=== PATIENT | female | born 1960 | race Two or more races ===

== ENCOUNTER 2017-03-16 14:40 | Emergency (ER) | payer SELFPAY ==
[~2017-03-16] VITALS: Ht 170.2 cm; Wt 86.2 kg
[2017-03-16 14:54] VITALS: BP 145/94
--- NOTE | 2017-03-16 15:32 | Emergency Room Report ---
History of Present Illness General Chief Complaint: Medical Clearance Source: Patient Present Illness HPI 56-year-old female presents emergency department for a medical clearance for incarceration. Patient reports history of chronic back pain with herniated disc in addition to diabetes type 2. Patient reports low back pain that is 5/ 10 in severity localized nonradiating consistent with her chronic back pain symptoms.Patient states she is prescribed tramadol, and gabapentin for her pain. Patient also is requesting that her glucose be checked prior to discharge. Pt. states she also has hx of fibromyalgia, and thyroid dysfunction. Denies abdominal pain, rashes, fevers, chills, nausea, or vomiting. Denies polydipsia/polyuria. Denies numbness tingling or loss of sensation or gross motor movements of the extremities, incontinence of bowel or bladder. Denies CP , Palpitations, LOC, AMS, dizziness, Changes in Vision, Sensation, paresthesias , or a sudden severe headache. Allergies: Coded Allergies: No Known Allergies (Unverified , 03/16/17) Patient History Past Medical History: see triage record Past Surgical History: none Pertinent Family History: none Immunizations: UTD Reviewed Nursing Documentation: PMH: Agreed, PSxH: Agreed Nursing Documentation-PMH Past Medical History: No History, Except For Hx Hypertension: Yes - Thyroid problem Hx Diabetes: Yes Hx Dialysis: Yes History Of Psychiatric Problem: Yes - Anxiety Hx Neurological Problems: Yes - Herinated disc Review of Systems All Other Systems: negative except mentioned in HPI Physical Exam Vital Signs Date Time Temp Pulse Resp B/P Pulse Ox O2 Delivery O2 Flow Rate FiO2 03/16/17 14:54 98.4 101 18 145/94 96 Room Air Sp02 EP Interpretation: reviewed, abnormal - tachycardic at 101bpm General Appearance: no apparent distress, alert, GCS 15, non-toxic Head: normocephalic, atraumatic Eyes: bilateral eye PERRL, bilateral eye normal inspection ENT: hearing grossly normal, normal pharynx, no angioedema, normal voice Neck: full range of motion, supple/symm/no masses Respiratory: chest non-tender, lungs clear, normal breath sounds, speaking full sentences Cardiovascular #1: regular rate, rhythm, no edema Gastrointestinal: normal bowel sounds, non tender, soft, no guarding, no rebound Rectal: deferred Genitourinary: normal inspection, no CVA tenderness Musculoskeletal: back normal, gait/station normal, normal range of motion, tender - paraspinal bilateral TTP, no midline ttp, no obivous deformities. Neurologic: alert, oriented x3, responsive, motor strength/tone normal, sensory intact, speech normal Psychiatric: judgement/insight normal, memory normal, mood/affect normal Skin: normal color, no rash, warm/dry, well hydrated Lymphatic: no adenopathy Medical Decision Making PA Attestation Dr. Sheridan is my supervising Physician whom patient management has been discussed with. Diagnostic Impression: Primary Impression: Medical clearance for incarceration ER Course 56-year-old female presents emergency department for a medical clearance for incarceration. Patient reports history of chronic back pain with herniated disc in addition to diabetes type 2. Patient reports low back pain that is 5/ 10 in severity localized nonradiating consistent with her chronic back pain symptoms.Patient states she is prescribed tramadol, and gabapentin for her pain. Patient also is requesting that her glucose be checked prior to discharge. Pt. states she also has hx of fibromyalgia, and thyroid dysfunction. Ddx considered but are not limited to Head Trauma, DC, ACS, SI/HI, URI, SAH, Fractures, Dislocations, Tazer barbs, Abrasions. Vital signs: are WNL, pt. is afebrile H&PE are most consistent with: normal physical examination. NAD, non-toxic in appearance. ORDERS: -Accu-check: 187 ED INTERVENTIONS: None required at this time. I do not suspect an emergent condition at this time. with current presentation pt. is stable for close outpatient follow up and management of her chronic conditions. DISCHARGE: At this time pt. is stable for d/c to law enforcement. Will provide printed patient care instructions, and any necessary prescriptions. Care plan and follow up instructions have been discussed with the patient prior to discharge. Last Vital Signs Date Time Temp Pulse Resp B/P Pulse Ox O2 Delivery O2 Flow Rate FiO2 03/16/17 14:54 98.4 18 145/94 96 Room Air 03/16/17 14:54 101 Disposition: HOME, SELF-CARE Condition: Stable Referrals: NOT CHOSEN IPA/MD,REFERRING (PCP) Departure Forms: Custodial Clearance Patient Instructions: Medical Screening Exam Additional Instructions: Take previously prescribed medications as directed. Follow up with PCP in 3-5 days Return sooner to ED if new symptoms occur, or current symptoms become worse. - Please note that this Emergency Department Report was dictated using [employer] safety [employer] technology software, occasionally this can lead to erroneous entry secondary to interpretation by the dictation equipment. Yenny Marin Mar 16, 2017 15:32
[2017-03-16 15:35] VITALS: BP 119/78
== END 2017-03-16 15:37 ==
LOC: EMR 15:05
DX: M54.5 Low back pain (principal); G89.29 Other chronic pain; M79.7 Fibromyalgia; E11.9 Type 2 diabetes mellitus without complications; I10 Essential (primary) hypertension; Z86.59 Personal history of other mental and behavioral disorders
CPT/HCPCS: 82962; 99283